=== PATIENT | female | born 1995 | race Caucasian/White ===

== ENCOUNTER 2017-04-19 21:37 | Emergency (ER) | payer MEDICAID, OTHER ==
[~2017-04-19] VITALS: Ht 165.1 cm; Wt 88.5 kg
[2017-04-19 21:52] VITALS: Ht 165.1 cm; Wt 88.5 kg
[2017-04-20] MEDS ORDERED: ONDANSETRON (ODT) 4 MG TAB ODT STA (01:03)
--- NOTE | 2017-04-20 01:03 | ERD ---
ER Documentation Chief Complaint Date/Time DATE: 04/20/17 TIME: 00:59 Chief Complaint This 21-year-old female presents to emergency department with complaint of right lower quadrant abdominal pain. Symptoms reportedly started at 2100 today. Patient reports irregular menstruation, last menstrual period over a month ago. No history of ovarian cyst. Denies dysuria, vaginal discharge, vaginal bleeding, back pain, patient reports nausea, denies vomiting. Patient has been able to eat and drink earlier today without deficit. Patient is able to tolerate water and soda while in emergency department HPI acute onset of right sided abd pain with nausea and headache, symptoms started at 2100.pain is described as sharp, pt LMP was last month on the 13, pt reports irregular mensuration. denies hx of ovarian cyst. pt reports nausia denies vaginal bleeding d/c or dysuria ROS All systems reviewed and are negative except as per history of present illness. Medications Home Meds No Active Prescriptions or Reported Meds Allergies Allergies: Coded Allergies: No Known Allergy (Unverified , 08/12/11) PMhx/Soc History of Surgery: No Anesthesia Reaction: No Hx Neurological Disorder: No Hx Respiratory Disorders: No Hx Cardiac Disorders: No Hx Psychiatric Problems: No Hx Miscellaneous Medical Probl: No Hx Alcohol Use: No Hx Substance Use: No Hx Tobacco Use: No Smoking Status: Never smoker Physical Exam Vitals Vital Signs Date Time Temp Pulse Resp B/P Pulse Ox O2 Delivery O2 Flow Rate FiO2 04/19/17 21:52 99.9 120 20 127/88 97 Vitals stable, triage notes reviewed Physical Exam Const: Well-nourished, well-hydrated, obese female in no acute distress Head: Eyes: ENT: Neck: Resp: Respirations even and unlabored no respiratory distress Cardio: Abd: Abdomen soft, generalized tenderness all quadrants, patient laughs on examination reports being extremely ticklish Skin: Back: Ext: Neur: Awake and alert Psych: Normal Mood and Affect Results 24 hrs Laboratory Tests Test 04/20/17 01:41 Bedside Urine pH (LAB) 6.5 Bedside Urine Protein (LAB) Trace Bedside Urine Glucose (UA) Negative Bedside Urine Ketones (LAB) Negative Bedside Urine Blood Negative Bedside Urine Nitrite (LAB) Positive Bedside Urine Leukocyte Esterase (L Trace Current Medications Medications (Trade) Dose Ordered Sig/Michelle Route PRN Reason Start Time Stop Time Status Last Admin Dose Admin Ondansetron HCl (Zofran Odt) 4 mg ONCE STAT ODT 04/20/17 01:03 04/20/17 01:08 DC 04/20/17 01:46 Acetaminophen/ Hydrocodone Bitart (Lyles (5/325)) 1 tab ONCE ONCE PO 04/20/17 01:30 04/20/17 01:31 DC 04/20/17 01:45 Interpretation text Trace leukocytes, nitrates positive suggestive of infection. Procedures/MDM PROCEDURE: Ultrasound of the pelvis. CLINICAL INDICATION: Pain TECHNIQUE: Transabdominal and transvaginal ultrasound of the pelvis was performed to better evaluate the pelvic viscera. COMPARISON: No pertinent prior examinations were submitted for comparison. FINDINGS: LAST MENSTRUAL PERIOD: Unavailable UTERUS: Size: 6.5 x 2.8 x 3.7 cm. The uterine texture is homogeneous. The endometrium measures 8.3 mm which is within normal limits. RIGHT OVARY: Size: 3.1 x 1.6 x 2.4 cm. No ovarian lesion or cyst is identified.Normal Doppler flow is noted to the right ovary. LEFT OVARY: Size: 3.5 x 2.1 x 2.6 cm. No ovarian lesion or cyst is identified.Normal Doppler flow is noted to the left ovary. CUL-DE-SAC: There is no abnormal free fluid. IMPRESSION: Normal endometrium. No evidence of ovarian torsion. Electronically viewed and signed by .Emmanuel Duarte MD, MD on 04/20/2017 02:47 This 21-year-old female presents to emergency department today with a 3 hour history of abdominal pain reported on right side. Patient reports symptoms acute, with no prior history of abdominal pain. Patient denies dysuria, constipation, or vomiting, reports nausea, physical exam findings support a nonacute abdomen, generalized tenderness, laughing during exam reports extremely ticklish to touch. Marc no suspicion for appendicitis, cholelithiasis, pancreatitis or biliary colic. A ovarian cyst or urinary tract infection is suspected at this time. Urinalysis confirms urinary tract infection with nitrates and leukocytes. Urine negative for evidence of and non-OB ultrasound findings uterus endometrium is normal, right ovary with normal Doppler flow, left ovary with normal Doppler flow, no lesions or cysts identified bilaterally, cul-de-sac is normal without free fluid, no evidence of ovarian torsion. Patient will be discharged home with Macrobid 100 mg twice daily 7 days, Motrin 400 mg p.o. every 6 hours as needed, follow-up with primary care physician for repeat urinalysis if symptoms fail to improve as anticipated. Return to emergency department for nausea, vomiting, pain not improving with Tylenol or Motrin. I feel the patient is stable for discharge at this time with outpatient management as discussed. I have discussed results , examination findings, the treatment plan with the patient and family present prior to discharge. Indications for emergent reevaluation, side effects of medication were also discussed. All questions were answered. Patient verbalizes understanding and agrees with plan of care. Departure Diagnosis: Primary Impression: UTI (urinary tract infection) Urinary tract infection type: site unspecified Hematuria presence: without hematuria Qualified Code: N39.0 - Urinary tract infection without hematuria, site unspecified Condition: Good Patient Instructions: Understanding Urinary Tract Infections (UTIs) SANDEEP DEL VALLE Apr 20, 2017 01:03
[2017-04-20] MEDS ORDERED: HYDROCODONE/APAP (5/325) TAB PO ONE (01:30)
[2017-04-20 01:35] LABS: URINE BLOOD (Dip) POC Negative (NEGATIVE)
--- NOTE | 2017-04-20 02:47 | RADRPT ---
PROCEDURE: Ultrasound of the pelvis. CLINICAL INDICATION: Pain TECHNIQUE: Transabdominal and transvaginal ultrasound of the pelvis was performed to better evalua te the pelvic viscera. COMPARISON: No pertinent prior examinations were submitted for comparison. FINDINGS: LAST MENSTRUAL PERIOD: Unavailable UTERUS: Size: 6.5 x 2.8 x 3.7 cm. The uterine texture is homogeneous. The endometrium measures 8.3 mm which is within normal limits. RIGHT OVARY: Size: 3.1 x 1.6 x 2.4 cm. No ovarian lesion or cyst is identified.Normal Doppler flow is noted to th e right ovary. LEFT OVARY: Size: 3.5 x 2.1 x 2.6 cm. No ovarian lesion or cyst is identified.Normal Doppler flow is noted to th e left ovary. CUL-DE-SAC: There is no abnormal free fluid. IMPRESSION: Normal endometrium. No evidence of ovarian torsion. RPTAT: HIKT .Emmanuel Duarte MD, MD Date Time Electronically viewed and signed by .Emmanuel Duarte MD, MD on 04/20/2017 02:47 .T/
[2017-04-20] MEDS ORDERED: NITR-58 PO (02:54)
[2017-04-20] MEDS ORDERED: IBUP400T22 PO (02:54)
[2017-04-20 03:16] VITALS: BP 128/86; PULSE 88; RESP 20; TEMP 98.7
== END 2017-04-20 03:18 | disposition home or self-care (01) ==
LOC: FTE 21:37
DX: N39.0 Urinary tract infection, site not specified (principal); R10.2 Pelvic and perineal pain; R11.0 Nausea
CPT/HCPCS: 76830; 76856; 81003; Z7502; Z7610